=== PATIENT | male | born 1950 | race Caucasian/White ===

== ENCOUNTER 2018-11-10 12:43 | Inpatient (IN) | payer MEDICARE, MEDICAID ==
[~2018-11-10] VITALS: Ht 185.4 cm; Wt 92.6 kg
[2018-11-10] MEDS ORDERED: SODIUM CHLORIDE FLUSH 10ML SYR IVF ONE (13:00)
--- NOTE | 2018-11-10 13:09 | NUR ---
PT PLACED ON MONITOR, BED LIGHT GIVEN.
[2018-11-10 13:21] LABS: BASOPHILS # (AUTO) 0.03 x10^3/uL (0-0.1); BASOPHILS % (AUTO) 0 % (0-1); EOSINOPHILS # (AUTO) 0.05 x10^3/uL (0-0.4); EOSINOPHILS % (AUTO) 1 % (1-7); LYMPHOCYTES % (AUTO) 18 % (22-44); MD NO; MEAN CORPUSCULAR HEMOGLOBIN 30.1 pg (27.5-34.5); MEAN CORPUSCULAR HGB CONC 32.9 g/dL (33.2-36.2); MEAN CORPUSCULAR VOLUME 91.7 fL (81-97); MEAN PLATELET VOLUME 7.4 fL (7.4-10.4); MONOCYTES # (AUTO) 1.39 x10^3/uL (0.2-0.8); MONOCYTES % (AUTO) 17 % (2-9); NEUTROPHILS # (AUTO) 5.34 x10^3/uL (1.8-6.8); NEUTROPHILS % (AUTO) 64 % (42-75); PLATELET COUNT 218 x10^3/uL (130-400); RED BLOOD COUNT 5.05 x10^6/uL (4.38-5.82)
--- NOTE | 2018-11-10 13:25 | NUR ---
PT SLEEPING WAKES, STATES FEELS MUCH BETTER, JUST SLIGHT CRAMPING, PO CHALLENGE GIVEN
[2018-11-10 13:28] LABS: INTERNATIONAL NORMALIZED RATIO 1.11 (0.93-1.1); PROTHROMBIN TIME 11.7 Seconds (9.6-11.5)
[2018-11-10 13:31] LABS: ALBUMIN 3.5 g/dL (3.4-5.0); ANION GAP 8 mmol/L (5-15); CALCIUM 8.7 mg/dL (8.5-10.1); CHLORIDE 101 mmol/L (98-107)
--- NOTE | 2018-11-10 13:33 | NUR ---
NOTIFIED MD OF PT'S CONTINUED HICCUPS AND PAIN. PT STATES THE EMS MEDS ARE STILL WORKING THOUGH. MD WAITING RESULTS BEFORE FURTHER MEDICATIONS
[2018-11-10 13:35] LABS: ALANINE AMINOTRANSFERASE 43 U/L (12-78); ALKALINE PHOSPHATASE 55 U/L (45-117); CREATININE 0.62 mg/dL (0.7-1.3); TOTAL PROTEIN 9.1 g/dL (6.4-8.2)
--- NOTE | 2018-11-10 14:29 | NUR ---
WAITING CT RESULTS UP TO BATHROOM
--- NOTE | 2018-11-10 15:57 | NUR ---
PT JUST VOMITED APPROXIMATELY 50CC DARK COFFE GROUND EMESIS. PTS FRIEND STATES HE HAS NOT EATEN FOR MONTHS, JUST DRINKS MILK. MD TO BE AWARE OF VOMITING
[2018-11-10] MEDS ORDERED: OMNIPAQUE 350 MG/ML, 100ML BOTTLE ONE (16:24)
--- NOTE | 2018-11-10 16:34 | NUR ---
CRISTELA RN: PATIENT UPDATED WITH THE PLAN OF CARE - AWAITING CT RESULTS
--- NOTE | 2018-11-10 17:01 | NUR ---
PATIENT FRIEND ELAINE LEAVING NUMBER IS [phone]
[2018-11-10] MEDS ORDERED: PANTOPRAZOLE 80 MG in SODIUM CHLORIDE 0.9% 50 ML IVPB ONE (17:46)
[2018-11-10] MEDS ORDERED: ONDANSETRON 2MG/ML, 2ML ONE (17:49)
[2018-11-10] MEDS ORDERED: PANTOPRAZOLE 40 MG IV ONE (17:50)
[2018-11-10] MEDS ORDERED: OCTREOTIDE 500 MCG in SODIUM CHLORIDE 0.9% 249 ML IV PRN (17:54)
[2018-11-10] MEDS ORDERED: ONDANSETRON 2MG/ML, 2ML IVPush ONE (18:00)
[2018-11-10] MEDS ORDERED: OCTREOTIDE 100MCG/ML, 1ML (0.1MG/ML) IV ONE (18:00)
[2018-11-10] MEDS ORDERED: OCTREOTIDE 100MCG/ML, 1ML (0.1MG/ML) ONE (18:21)
[2018-11-10] MEDS ORDERED: SODIUM CHLORIDE 0.9% 1,000 ML IV ONE (18:27)
[2018-11-10] MEDS ORDERED: SODIUM CHLORIDE FLUSH 10ML SYR IVF PRN (18:30)
--- NOTE | 2018-11-10 18:50 | NUR ---
TO SEE PT. PT CONTINUES TO INTERMITTENTLY VOMIT. WAITING ADMIT
[2018-11-10] MEDS ORDERED: ONDANSETRON 2MG/ML, 2ML IVPush PRN (19:00)
[2018-11-10] MEDS ORDERED: BISACODYL 10 MG SUPP PR PRN (19:00)
[2018-11-10] MEDS ORDERED: hydrALAzine 20 MG/ML, 1ML IVPush PRN (19:00)
[2018-11-10] MEDS ORDERED: NICOTINE 14MG/24 HR PATCH.TD24 TD ONE (19:30)
[2018-11-10] MEDS ORDERED: OCTREOTIDE 500 MCG in SODIUM CHLORIDE 0.9% 249 ML IV SCH (19:30)
[2018-11-10 21:04] VITALS: BP 124/78
[2018-11-10] MEDS: LIDODERM 5% PATCH TD PRN (21:28)
[2018-11-10] MEDS: LORazepam 2 MG/ML, 1ML IVPush PRN (21:29)
[2018-11-11 01:35] VITALS: BP 104/60
[2018-11-11] MEDS ORDERED: OCTREOTIDE 500 MCG in SODIUM CHLORIDE 0.9% 249 ML IV SCH (04:30)
[2018-11-11 06:11] LABS: ANION GAP 6 mmol/L (5-15); CALCIUM 8.3 mg/dL (8.5-10.1); CHLORIDE 102 mmol/L (98-107); CREATININE 0.73 mg/dL (0.7-1.3)
[2018-11-11 06:17] LABS: MEAN CORPUSCULAR HEMOGLOBIN 30.6 pg (27.5-34.5); MEAN CORPUSCULAR HGB CONC 32.9 g/dL (33.2-36.2); MEAN CORPUSCULAR VOLUME 93.2 fL (81-97); MEAN PLATELET VOLUME 7.9 fL (7.4-10.4); PLATELET COUNT 210 x10^3/uL (130-400); RED BLOOD COUNT 4.63 x10^6/uL (4.38-5.82); RED CELL DISTRIBUTION WIDTH 15.2 % (9.4-14.8)
[2018-11-11 06:55] LABS: BASOPHILS # (AUTO) 0.02 x10^3/uL (0-0.1); BASOPHILS % (AUTO) 0 % (0-1); EOSINOPHILS # (AUTO) 0.07 x10^3/uL (0-0.4); EOSINOPHILS % (AUTO) 1 % (1-7); LYMPHOCYTES # (AUTO) 1.67 x10^3/uL (1-3.4); LYMPHOCYTES % (AUTO) 23 % (22-44); MD SCAN; MONOCYTES # (AUTO) 1.48 x10^3/uL (0.2-0.8); MONOCYTES % (AUTO) 20 % (2-9); NEUTROPHILS # (AUTO) 4.19 x10^3/uL (1.8-6.8); NEUTROPHILS % (AUTO) 56 % (42-75)
[2018-11-11 07:30] VITALS: BP 108/68
[2018-11-11] MEDS ORDERED: SIMETHICONE DROPS 40 MG/0.6 ML BOTTLE ONE (08:21)
[2018-11-11] MEDS ORDERED: FENTANYL PF 100 MCG/2ML ONE (08:22)
[2018-11-11] MEDS ORDERED: MIDAZOLAM 1 MG/ML, 5ML ONE (08:23)
[2018-11-11] MEDS ORDERED: PANTOPRAZOLE 40 MG IV IVPush SCH (09:00)
[2018-11-11 13:48] VITALS: BP 111/72
[2018-11-11] MEDS ORDERED: ACETAMINOPHEN 325 MG TABLET PO PRN (14:30)
[2018-11-11] MEDS: SODIUM CHLORIDE 0.9% 1,000 ML IV SCH (17:54)
[2018-11-11 19:43] VITALS: BP 117/70
[2018-11-11] MEDS: OMEPRAZOLE 20 MG CAPSULE.DR PO SCH (20:43)
[2018-11-11] MEDS: LORazepam 2 MG/ML, 1ML IVPush PRN (20:45)
[2018-11-12 01:46] VITALS: BP 126/67
[2018-11-12] MEDS: SODIUM CHLORIDE 0.9% 1,000 ML IV SCH ×2 (04:20→15:16)
[2018-11-12 06:47] LABS: ALANINE AMINOTRANSFERASE 38 U/L (12-78); ANION GAP 5 mmol/L (5-15); CALCIUM 8.3 mg/dL (8.5-10.1); CHLORIDE 104 mmol/L (98-107); CREATININE 0.68 mg/dL (0.7-1.3)
[2018-11-12 06:49] LABS: ALKALINE PHOSPHATASE 47 U/L (45-117); TOTAL PROTEIN 7.5 g/dL (6.4-8.2)
[2018-11-12 08:12] VITALS: BP 105/65
[2018-11-12] MEDS: OMEPRAZOLE 20 MG CAPSULE.DR PO SCH ×2 (09:16→21:05)
[2018-11-12] MEDS ORDERED: SENNA/DOCUSATE TABLET PO PRN (12:00)
[2018-11-12] MEDS ORDERED: LACTULOSE 20 GM/30 ML UDC PO PRN (12:00)
[2018-11-12] MEDS: DOCUSATE 100 MG CAPSULE PO PRN (12:11)
[2018-11-12] MEDS ORDERED: METOCLOPRAMIDE 5 MG/ML, 2ML IVPush PRN (15:00)
[2018-11-12 15:59] VITALS: BP 117/71
[2018-11-12 19:57] VITALS: BP 132/72
[2018-11-12] MEDS: LIDODERM 5% PATCH TD PRN (21:11)
[2018-11-12] MEDS: LORazepam 2 MG/ML, 1ML IVPush PRN (21:11)
[2018-11-13 02:20] VITALS: BP 111/65
[2018-11-13] MEDS: SODIUM CHLORIDE 0.9% 1,000 ML IV SCH ×2 (02:38→11:29)
[2018-11-13 07:43] VITALS: BP 110/66
[2018-11-13] MEDS: OMEPRAZOLE 20 MG CAPSULE.DR PO SCH (09:28)
[2018-11-13] MEDS: DOCUSATE 100 MG CAPSULE PO PRN (10:08)
[2018-11-13 11:39] VITALS: BP 127/68
[2018-11-13] MEDS ORDERED: OMEP-110 PO (13:11)
[2018-11-13] MEDS ORDERED: METO10TA82 PO (14:14)
[2018-11-13] MEDS ORDERED: LORA-446 PO (14:16)
[2018-11-13 14:32] VITALS: BP 122/68
== END 2018-11-13 14:35 | disposition home or self-care (01) | DRG 380 ==
LOC: ED 13:18 → EDIP 18:27 → 4EST 19:36 → DCLOUNGE 11-13 14:10
PROVIDERS: ADMIT Internal Medicine; ATTEND Internal Medicine
PROC: 0DJ08ZZ Inspection of Upper Intestinal Tract, Via Natural or Artificial Opening Endoscopic (ICD-10-PCS; principal; 2018-11-11 08:30)
DX: K22.11 Ulcer of esophagus with bleeding (principal); K85.90 Acute pancreatitis without necrosis or infection, unspecified; K55.069 Acute infarction of intestine, part and extent unspecified; F10.239 Alcohol dependence with withdrawal, unspecified; K76.6 Portal hypertension; K70.30 Alcoholic cirrhosis of liver without ascites; Z71.41 Alcohol abuse counseling and surveillance of alcoholic; F17.210 Nicotine dependence, cigarettes, uncomplicated; F12.90 Cannabis use, unspecified, uncomplicated; E86.9 Volume depletion, unspecified; I70.1 Atherosclerosis of renal artery; K21.0 Gastro-esophageal reflux disease with esophagitis; K44.9 Diaphragmatic hernia without obstruction or gangrene; Z82.0 Family history of epilepsy and other diseases of the nervous system; K29.81 Duodenitis with bleeding; K29.80 Duodenitis without bleeding
CPT/HCPCS: 36415; 74175; 74177; 80048; 80053; 80074; 83605; 83690; 85014; 85018; 85025; 85610; 85730; 86850; 86900; 87521; 96374; 96375; 99152; 99153; 99285; G0378; J2250; J2354; J2405; J3010; Q9967; C9113; J2060; J7030; J7050

== ENCOUNTER 2019-01-31 10:58 | Emergency (ER) | payer MEDICARE, MEDICAID ==
[~2019-01-31] VITALS: Ht 182.9 cm; Wt 90.0 kg
[~2019-01-31 10:58] MED LIST: LORA-446 PO; METO10TA82 PO; OMEP-110 PO
[2019-01-31 11:01] VITALS: BP 154/81
--- NOTE | 2019-01-31 11:04 | NUR ---
Patient brought in by EMS after being called by patient for lower back pain. Patient was reportedly seen by his primary care provider 01/30/19 and prescribed baclofen but states pain is not controlled. IV started by EMS prior to arrival, patient was ambulatory on scene, fentanyl 100mcg administered prior to arrival. Patient arrives alert and oriented, answering questions appropriately, he is able to stand and pivot into ER gurney with one person assist. Patient states that he does not feel relief after fentanyl, states "I didn't even feel it (fentanyl)" when asked if his pain had improved. Patient laying in gurney, call quezada within reach, continuous blood pressure and SPO2 monitoring in place; call quezada within reach. Report given to patient's primary RN Tunde Gomez
[2019-01-31] MEDS ORDERED: HYDROcodone/APAP 10/325 MG TABLET PO ONE (11:30)
[2019-01-31] MEDS ORDERED: HYDROcodone/APAP 10/325 MG TABLET ONE (11:35)
[2019-01-31 11:41] LABS: BASOPHILS # (AUTO) 0.03 x10^3/uL (0-0.1); BASOPHILS % (AUTO) 1 % (0-1); EOSINOPHILS # (AUTO) 0.12 x10^3/uL (0-0.4); EOSINOPHILS % (AUTO) 2 % (1-7); LYMPHOCYTES # (AUTO) 1.87 x10^3/uL (1-3.4); LYMPHOCYTES % (AUTO) 33 % (22-44); MD NO; MEAN CORPUSCULAR HGB CONC 33.1 g/dL (33.2-36.2); MEAN CORPUSCULAR VOLUME 90.6 fL (81-97); MEAN PLATELET VOLUME 7.6 fL (7.4-10.4); MONOCYTES # (AUTO) 0.53 x10^3/uL (0.2-0.8); MONOCYTES % (AUTO) 9 % (2-9); NEUTROPHILS # (AUTO) 3.19 x10^3/uL (1.8-6.8); NEUTROPHILS % (AUTO) 56 % (42-75); PLATELET COUNT 184 x10^3/uL (130-400); RED BLOOD COUNT 4.76 x10^6/uL (4.38-5.82); RED CELL DISTRIBUTION WIDTH 16.5 % (9.4-14.8)
[2019-01-31 11:54] LABS: ALANINE AMINOTRANSFERASE 34 U/L (12-78); ALBUMIN 3.6 g/dL (3.4-5.0); ANION GAP 5 mmol/L (5-15); CHLORIDE 107 mmol/L (98-107); CREATININE 0.76 mg/dL (0.7-1.3)
[2019-01-31 11:56] LABS: ALKALINE PHOSPHATASE 74 U/L (45-117); TOTAL PROTEIN 8.5 g/dL (6.4-8.2)
--- NOTE | 2019-01-31 12:13 | NUR ---
PT REQUESTING PAIN MEDS AT THIS TIME. PROVIDER MADE AWARE. NO NEW ORDERS.
== END 2019-01-31 13:52 | disposition home or self-care (01) ==
LOC: ED 11:04
DX: S39.012A Strain of muscle, fascia and tendon of lower back, initial encounter (principal); M54.16 Radiculopathy, lumbar region; F17.210 Nicotine dependence, cigarettes, uncomplicated; X58.XXXA Exposure to other specified factors, initial encounter; Y93.89 Activity, other specified; Y92.89 Other specified places as the place of occurrence of the external cause; Y99.8 Other external cause status
CPT/HCPCS: 36415; 72110; 80053; 85025; 99284

== ENCOUNTER → 2019-03-04 | Outpatient (CLI) | payer MEDICARE, MEDICAID ==
[~2019-03-04] MED LIST changes: +FENTANYL PF 100 MCG/2ML ONE; +MIDAZOLAM 1 MG/ML, 5ML ONE
== END | disposition home or self-care (01) ==
LOC: RAD 12:31
PROVIDERS: ATTEND Licensed Practical Nurse
DX: Z12.2 Encounter for screening for malignant neoplasm of respiratory organs (principal); S22.080A Wedge compression fracture of T11-T12 vertebra, initial encounter for closed fracture; M48.061 Spinal stenosis, lumbar region without neurogenic claudication; M43.07 Spondylolysis, lumbosacral region; M51.36 Other intervertebral disc degeneration, lumbar region; R91.8 Other nonspecific abnormal finding of lung field; F17.200 Nicotine dependence, unspecified, uncomplicated; X58.XXXA Exposure to other specified factors, initial encounter; Y93.89 Activity, other specified; Y92.89 Other specified places as the place of occurrence of the external cause; Y99.8 Other external cause status
CPT/HCPCS: 72110; 72148; 99156; 99157; G0297; J2250; J3010

== ENCOUNTER 2019-05-22 11:10 | Outpatient (CLI) | payer MEDICARE, MEDICAID | END 2019-05-22 23:59 | disposition home or self-care (01) | LOC: RAD 11:10 | PROVIDERS: ATTEND Registered Nurse | DX: M48.55XA Collapsed vertebra, not elsewhere classified, thoracolumbar region, initial encounter for fracture (principal); M51.16 Intervertebral disc disorders with radiculopathy, lumbar region; M47.817 Spondylosis without myelopathy or radiculopathy, lumbosacral region; M43.17 Spondylolisthesis, lumbosacral region; M48.061 Spinal stenosis, lumbar region without neurogenic claudication | CPT/HCPCS: 72110 ==

== ENCOUNTER 2020-01-04 10:32 | Inpatient (IN) | payer MEDICARE, MEDICAID ==
[~2020-01-04] VITALS: Ht 185.4 cm; Wt 72.6 kg
[~2020-01-04 10:32] MED LIST changes: +BACL-19 PO; -FENTANYL PF 100 MCG/2ML ONE; +HYDR-3240 PO; -MIDAZOLAM 1 MG/ML, 5ML ONE; +OMEP40CA42 PO
[2020-01-04] MEDS ORDERED: MORPHINE SULFATE 4 MG/ML, 1ML ONE ×2 (11:13→12:18)
[2020-01-04] MEDS: MORPHINE SULFATE 4 MG/ML, 1ML IVPush PRN ×2 (11:20→12:20)
[2020-01-04] MEDS ORDERED: ONDANSETRON 2MG/ML, 2ML IVPush ONE (11:30)
[2020-01-04] MEDS ORDERED: ONDANSETRON 2MG/ML, 2ML ONE (11:31)
[2020-01-04 11:32] LABS: BASOPHILS # (AUTO) 0.03 x10^3/uL (0-0.1); BASOPHILS % (AUTO) 1 % (0-1); EOSINOPHILS # (AUTO) 0.07 x10^3/uL (0-0.4); EOSINOPHILS % (AUTO) 1 % (1-7); LYMPHOCYTES # (AUTO) 1.33 x10^3/uL (1-3.4); LYMPHOCYTES % (AUTO) 25 % (22-44); MD NO; MEAN CORPUSCULAR HEMOGLOBIN 36.5 pg (27.5-34.5); MEAN CORPUSCULAR HGB CONC 33.7 g/dL (33.2-36.2); MEAN CORPUSCULAR VOLUME 108.4 fL (81-97); MEAN PLATELET VOLUME 7.4 fL (7.4-10.4); MONOCYTES # (AUTO) 0.57 x10^3/uL (0.2-0.8); MONOCYTES % (AUTO) 11 % (2-9); NEUTROPHILS # (AUTO) 3.41 x10^3/uL (1.8-6.8); NEUTROPHILS % (AUTO) 63 % (42-75); PLATELET COUNT 182 x10^3/uL (130-400); RED BLOOD COUNT 3.79 x10^6/uL (4.38-5.82); RED CELL DISTRIBUTION WIDTH 15.1 % (9.4-14.8)
[2020-01-04 11:44] LABS: ALANINE AMINOTRANSFERASE 22 U/L (12-78); ALBUMIN 3.2 g/dL (3.4-5.0); ANION GAP 7 mmol/L (5-15); CALCIUM 8.6 mg/dL (8.5-10.1); CHLORIDE 101 mmol/L (98-107); CREATININE 0.67 mg/dL (0.7-1.3)
[2020-01-04 11:45] LABS: INTERNATIONAL NORMALIZED RATIO 1.04 (0.93-1.1)
[2020-01-04 11:46] LABS: ALKALINE PHOSPHATASE 83 U/L (45-117); BILIRUBIN,TOTAL 2.9 mg/dL (0.2-1.0); TOTAL PROTEIN 7.9 g/dL (6.4-8.2)
--- NOTE | 2020-01-04 12:10 | NUR ---
PT IN XRAY. ASSUMED CARE FROM TERRI DREW
[2020-01-04] MEDS ORDERED: HYDROcodone/APAP 5/325 TABLET PO ONE (13:00)
[2020-01-04] MEDS ORDERED: HYDROcodone/APAP 5/325 TABLET PO PRN (13:30)
[2020-01-04] MEDS ORDERED: ENOXAPARIN 40 MG/0.4 ML SQ SCH ×2 (13:30→15:30)
[2020-01-04] MEDS: NICOTINE 14MG/24 HR PATCH.TD24 TD SCH (13:30)
[2020-01-04] MEDS ORDERED: ACETAMINOPHEN 325 MG TABLET PO PRN (13:30)
[2020-01-04] MEDS ORDERED: HYDROcodone/APAP 5/325 TABLET ONE (13:30)
[2020-01-04] MEDS: SODIUM CHLORIDE 0.9% 1,000 ML IV SCH (13:33)
[2020-01-04 14:47] VITALS: BP 115/78
[2020-01-04] MEDS: ENOXAPARIN 30 MG/0.3 ML SQ SCH (16:42)
[2020-01-04] MEDS: morphine SULFATE 10 MG/ML, 1ML IVPush PRN ×2 (17:18→20:36)
[2020-01-04 19:55] VITALS: BP 99/62
[2020-01-05 01:53] VITALS: BP 105/70
[2020-01-05] MEDS: SODIUM CHLORIDE 0.9% 1,000 ML IV SCH ×2 (02:32→15:37)
[2020-01-05] MEDS: morphine SULFATE 10 MG/ML, 1ML IVPush PRN ×3 (02:37→20:22)
[2020-01-05 06:25] LABS: ANION GAP 6 mmol/L (5-15); CHLORIDE 104 mmol/L (98-107)
[2020-01-05 06:26] LABS: CREATININE 0.57 mg/dL (0.7-1.3)
[2020-01-05 06:35] LABS: BASOPHILS # (AUTO) 0.03 x10^3/uL (0-0.1); BASOPHILS % (AUTO) 1 % (0-1); EOSINOPHILS % (AUTO) 2 % (1-7); LYMPHOCYTES # (AUTO) 1.54 x10^3/uL (1-3.4); LYMPHOCYTES % (AUTO) 30 % (22-44); MD NO; MEAN CORPUSCULAR HEMOGLOBIN 36.5 pg (27.5-34.5); MEAN CORPUSCULAR HGB CONC 33.5 g/dL (33.2-36.2); MEAN PLATELET VOLUME 8.1 fL (7.4-10.4); MONOCYTES # (AUTO) 0.71 x10^3/uL (0.2-0.8); MONOCYTES % (AUTO) 14 % (2-9); NEUTROPHILS # (AUTO) 2.79 x10^3/uL (1.8-6.8); NEUTROPHILS % (AUTO) 54 % (42-75); PLATELET COUNT 140 x10^3/uL (130-400); RED BLOOD COUNT 3.27 x10^6/uL (4.38-5.82); RED CELL DISTRIBUTION WIDTH 15.4 % (9.4-14.8)
[2020-01-05 07:16] VITALS: BP 100/65
[2020-01-05] MEDS: ACETAMINOPHEN 325 MG TABLET PO SCH ×2 (08:01→15:37)
[2020-01-05] MEDS: SENNA/DOCUSATE TABLET PO SCH (08:01)
[2020-01-05] MEDS: OMEPRAZOLE 20 MG CAPSULE.DR PO SCH (08:01)
[2020-01-05] MEDS: GABAPENTIN 100 MG CAPSULE PO SCH ×3 (08:02→20:23)
[2020-01-05] MEDS: OXYcodone IR 5MG TABLET PO SCH ×3 (12:00→20:23)
[2020-01-05] MEDS: NICOTINE 14MG/24 HR PATCH.TD24 TD SCH (12:00)
[2020-01-05 13:57] VITALS: BP 117/78
[2020-01-05] MEDS: ENOXAPARIN 30 MG/0.3 ML SQ SCH (15:37)
[2020-01-05] MEDS ORDERED: POTASSIUM CHLORIDE 20 MEQ TAB.ER.PRT PO ONE (16:30)
[2020-01-05] MEDS ORDERED: POTASSIUM CHLORIDE 40 MEQ in SODIUM CHLORIDE 0.9% 500 ML IV ONE (16:30)
[2020-01-05 20:41] VITALS: BP 126/77
[2020-01-06] MEDS: ACETAMINOPHEN 325 MG TABLET PO SCH ×3 (00:34→17:02)
[2020-01-06] MEDS: morphine SULFATE 10 MG/ML, 1ML IVPush PRN ×2 (00:35→14:28)
[2020-01-06] MEDS: OXYcodone IR 5MG TABLET PO SCH ×6 (00:35→19:51)
[2020-01-06 03:36] VITALS: BP 98/60
[2020-01-06 06:00] LABS: ANION GAP 4 mmol/L (5-15); CALCIUM 7.5 mg/dL (8.5-10.1); CHLORIDE 110 mmol/L (98-107)
[2020-01-06 06:01] LABS: CREATININE 0.47 mg/dL (0.7-1.3)
[2020-01-06] MEDS: SODIUM CHLORIDE 0.9% 1,000 ML IV SCH (06:02)
[2020-01-06] MEDS ORDERED: POTASSIUM CHLORIDE 20 MEQ TAB.ER.PRT PO ONE ×2 (07:30→10:30)
[2020-01-06 08:11] VITALS: BP 119/72
[2020-01-06] MEDS: OMEPRAZOLE 20 MG CAPSULE.DR PO SCH (09:03)
[2020-01-06] MEDS: GABAPENTIN 100 MG CAPSULE PO SCH (09:04)
[2020-01-06] MEDS: SENNA/DOCUSATE TABLET PO SCH (09:05)
[2020-01-06] MEDS: NICOTINE 14MG/24 HR PATCH.TD24 TD SCH (14:11)
[2020-01-06 14:32] VITALS: BP 137/86
[2020-01-06] MEDS: GABAPENTIN 400 MG CAPSULE PO SCH ×2 (17:01→19:51)
[2020-01-06] MEDS: ENOXAPARIN 30 MG/0.3 ML SQ SCH (17:02)
[2020-01-06 20:28] VITALS: BP 138/83
[2020-01-07 00:04] VITALS: BP 145/89
[2020-01-07] MEDS: OXYcodone IR 5MG TABLET PO SCH ×6 (00:08→20:30)
[2020-01-07] MEDS: ACETAMINOPHEN 325 MG TABLET PO SCH ×3 (00:08→16:30)
[2020-01-07 05:30] LABS: BASOPHILS # (AUTO) 0.03 x10^3/uL (0-0.1); BASOPHILS % (AUTO) 1 % (0-1); EOSINOPHILS # (AUTO) 0.12 x10^3/uL (0-0.4); EOSINOPHILS % (AUTO) 3 % (1-7); LYMPHOCYTES # (AUTO) 1.37 x10^3/uL (1-3.4); LYMPHOCYTES % (AUTO) 30 % (22-44); MD NO; MEAN CORPUSCULAR HEMOGLOBIN 36.4 pg (27.5-34.5); MEAN CORPUSCULAR HGB CONC 33.2 g/dL (33.2-36.2); MEAN CORPUSCULAR VOLUME 109.7 fL (81-97); MEAN PLATELET VOLUME 7.8 fL (7.4-10.4); MONOCYTES # (AUTO) 0.67 x10^3/uL (0.2-0.8); MONOCYTES % (AUTO) 15 % (2-9); NEUTROPHILS % (AUTO) 52 % (42-75); PLATELET COUNT 132 x10^3/uL (130-400); RED BLOOD COUNT 3.34 x10^6/uL (4.38-5.82); RED CELL DISTRIBUTION WIDTH 15.9 % (9.4-14.8)
[2020-01-07 05:36] LABS: ANION GAP 4 mmol/L (5-15); CALCIUM 7.8 mg/dL (8.5-10.1); CHLORIDE 112 mmol/L (98-107); CREATININE 0.44 mg/dL (0.7-1.3)
[2020-01-07] MEDS: GABAPENTIN 400 MG CAPSULE PO SCH ×3 (08:41→20:30)
[2020-01-07] MEDS: OMEPRAZOLE 20 MG CAPSULE.DR PO SCH (08:41)
[2020-01-07] MEDS: SENNA/DOCUSATE TABLET PO SCH (08:45)
[2020-01-07] MEDS: POLYETHYLENE GLYCOL 17 GM PACKET PO SCH (08:45)
[2020-01-07 09:17] VITALS: BP 129/81
[2020-01-07] MEDS: morphine SULFATE 10 MG/ML, 1ML IVPush PRN (12:12)
[2020-01-07] MEDS ORDERED: MIDAZOLAM 1 MG/ML, 2ML ONE ×2 (13:00→17:21)
[2020-01-07] MEDS ORDERED: FENTANYL PF 250 MCG/5ML ONE ×2 (13:00→17:22)
[2020-01-07] MEDS: NICOTINE 14MG/24 HR PATCH.TD24 TD SCH (13:30)
[2020-01-07] MEDS ORDERED: TRANEXAMIC ACID 100 MG/ML, 10ML ONE ×2 (13:45)
[2020-01-07] MEDS ORDERED: BUPIVACAINE LIPOSOME/PF 10ML INFIL ONE (14:00)
[2020-01-07] MEDS ORDERED: DIAZEPAM 5 MG/ML, 2ML IVPush PRN (16:30)
[2020-01-07] MEDS: ENOXAPARIN 30 MG/0.3 ML SQ SCH (16:30)
[2020-01-07] MEDS ORDERED: OXYcodone 5 MG/5 ML ORAL.SOL UDC PO PRN (16:30)
[2020-01-07] MEDS ORDERED: KETOROLAC 30 MG/1 ML IV PRN (16:30)
[2020-01-07] MEDS ORDERED: FENTANYL PF 100 MCG/2ML IV PRN (16:30)
[2020-01-07] MEDS ORDERED: PROMETHAZINE 25 MG/ML, 1ML IV PRN (16:30)
[2020-01-07] MEDS ORDERED: ALBUTEROL SULFATE 2.5 MG/3 ML NPPB PRN (16:30)
[2020-01-07] MEDS ORDERED: MEPERIDINE/PF 25MG/0.5ML IVPush PRN (16:30)
[2020-01-07] MEDS ORDERED: ACETAMINOPHEN 325 MG TABLET PO PRN (16:30)
[2020-01-07] MEDS ORDERED: LABETALOL 5MG/ML, 20ML IV PRN (16:30)
[2020-01-07] MEDS ORDERED: hydrALAzine 20 MG/ML, 1ML IV PRN (16:30)
[2020-01-07] MEDS ORDERED: HYDROmorphone 2 MG/ML, 1ML IVPush PRN (16:30)
[2020-01-07] MEDS ORDERED: ROCURONIUM 10MG/ML,5ML ONE (17:26)
[2020-01-07] MEDS ORDERED: SUCCINYLCHOLINE 20 MG/ML, 10ML ONE (17:26)
[2020-01-07] MEDS ORDERED: NEOSTIGMINE 1 MG/ML, 10ML ONE (17:26)
[2020-01-07] MEDS ORDERED: GLYCOPYRROLATE 0.2MG/1ML, 5ML ONE (17:26)
[2020-01-07] MEDS ORDERED: ONDANSETRON 2MG/ML, 2ML ONE (17:26)
[2020-01-07] MEDS ORDERED: SUGAMMADEX 200 MG/2 ML IVPush ONE (17:26)
[2020-01-07] MEDS ORDERED: DEXAMETHASONE 4 MG/ML, 1ML ONE (17:26)
[2020-01-07] MEDS ORDERED: PROPOFOL 10 MG/ML, 20ML ONE (17:26)
[2020-01-07] MEDS ORDERED: CEFAZOLIN 1,000 MG ONE (17:26)
[2020-01-07] MEDS ORDERED: DIAZEPAM 5 MG/ML, 2ML ONE (17:40)
[2020-01-07] MEDS ORDERED: FENTANYL PF 100 MCG/2ML ONE (17:40)
[2020-01-07] MEDS ORDERED: OXYcodone 5 MG/5 ML ORAL.SOL UDC ONE (17:40)
[2020-01-07 20:15] VITALS: BP 99/67
[2020-01-08] MEDS: ACETAMINOPHEN 325 MG TABLET PO SCH ×3 (00:16→16:07)
[2020-01-08] MEDS: OXYcodone IR 5MG TABLET PO SCH ×6 (01:24→21:18)
[2020-01-08] MEDS: CEFAZOLIN PMX 2GM/50ML 50 ML IVPB SCH ×2 (01:26→08:48)
[2020-01-08 04:10] VITALS: BP 96/59
[2020-01-08 05:53] LABS: ANION GAP 6 mmol/L (5-15); CALCIUM 7.6 mg/dL (8.5-10.1); CHLORIDE 107 mmol/L (98-107)
[2020-01-08 05:54] LABS: CREATININE 0.52 mg/dL (0.7-1.3)
[2020-01-08 05:59] LABS: BASOPHILS # (AUTO) 0.01 x10^3/uL (0-0.1); BASOPHILS % (AUTO) 0 % (0-1); EOSINOPHILS # (AUTO) 0.04 x10^3/uL (0-0.4); EOSINOPHILS % (AUTO) 1 % (1-7); LYMPHOCYTES # (AUTO) 0.91 x10^3/uL (1-3.4); LYMPHOCYTES % (AUTO) 12 % (22-44); MD NO; MEAN CORPUSCULAR HEMOGLOBIN 36.4 pg (27.5-34.5); MEAN CORPUSCULAR HGB CONC 33.4 g/dL (33.2-36.2); MEAN CORPUSCULAR VOLUME 109.1 fL (81-97); MEAN PLATELET VOLUME 7.9 fL (7.4-10.4); MONOCYTES # (AUTO) 0.87 x10^3/uL (0.2-0.8); MONOCYTES % (AUTO) 12 % (2-9); NEUTROPHILS # (AUTO) 5.64 x10^3/uL (1.8-6.8); NEUTROPHILS % (AUTO) 76 % (42-75); PLATELET COUNT 137 x10^3/uL (130-400); RED BLOOD COUNT 2.94 x10^6/uL (4.38-5.82)
[2020-01-08] MEDS: OMEPRAZOLE 20 MG CAPSULE.DR PO SCH (06:17)
[2020-01-08 08:40] VITALS: BP 112/72
[2020-01-08] MEDS: GABAPENTIN 400 MG CAPSULE PO SCH ×3 (08:47→21:18)
[2020-01-08] MEDS: SENNA/DOCUSATE TABLET PO SCH (08:48)
[2020-01-08] MEDS: POLYETHYLENE GLYCOL 17 GM PACKET PO SCH (08:48)
[2020-01-08] MEDS: NICOTINE 14MG/24 HR PATCH.TD24 TD SCH (13:30)
[2020-01-08 13:55] VITALS: BP 108/72
[2020-01-08] MEDS ORDERED: OXYcodone 5 MG/5 ML ORAL.SOL UDC ONE (13:57)
[2020-01-08] MEDS: ENOXAPARIN 30 MG/0.3 ML SQ SCH (16:07)
[2020-01-08 19:31] VITALS: BP 108/67
[2020-01-09] MEDS: ACETAMINOPHEN 325 MG TABLET PO SCH ×3 (00:27→15:57)
[2020-01-09] MEDS: OXYcodone IR 5MG TABLET PO SCH ×6 (01:42→21:28)
[2020-01-09 02:28] VITALS: BP 111/69
[2020-01-09 05:41] LABS: MEAN CORPUSCULAR HEMOGLOBIN 36.9 pg (27.5-34.5); MEAN CORPUSCULAR HGB CONC 33.4 g/dL (33.2-36.2); MEAN CORPUSCULAR VOLUME 110.3 fL (81-97); RED BLOOD COUNT 2.82 x10^6/uL (4.38-5.82); RED CELL DISTRIBUTION WIDTH 16.4 % (9.4-14.8)
[2020-01-09 05:42] LABS: ANION GAP 6 mmol/L (5-15); CALCIUM 7.3 mg/dL (8.5-10.1); CHLORIDE 111 mmol/L (98-107); CREATININE 0.53 mg/dL (0.7-1.3)
[2020-01-09 06:19] LABS: MEAN PLATELET VOLUME 7.6 fL (7.4-10.4); PLATELET COUNT 135 x10^3/uL (130-400)
[2020-01-09 06:22] LABS: MD MORPH REVIEW ONLY
[2020-01-09 06:23] LABS: <PLATELET ESTIMATE> ADEQUATE; <PLT MORPHOLOGY> NORMAL PLT MORPH; BASOPHILS # (AUTO) 0.02 x10^3/uL (0-0.1); BASOPHILS % (AUTO) 0 % (0-1); EOSINOPHILS # (AUTO) 0.07 x10^3/uL (0-0.4); EOSINOPHILS % (AUTO) 1 % (1-7); LYMPHOCYTES # (AUTO) 1.61 x10^3/uL (1-3.4); LYMPHOCYTES % (AUTO) 31 % (22-44); MONOCYTES # (AUTO) 0.78 x10^3/uL (0.2-0.8); MONOCYTES % (AUTO) 15 % (2-9); NEUTROPHILS # (AUTO) 2.76 x10^3/uL (1.8-6.8); NEUTROPHILS % (AUTO) 53 % (42-75)
[2020-01-09] MEDS: OMEPRAZOLE 20 MG CAPSULE.DR PO SCH (06:39)
[2020-01-09] MEDS: GABAPENTIN 400 MG CAPSULE PO SCH ×3 (08:23→21:27)
[2020-01-09] MEDS: SENNA/DOCUSATE TABLET PO SCH (08:23)
[2020-01-09] MEDS: POLYETHYLENE GLYCOL 17 GM PACKET PO SCH (08:24)
[2020-01-09 08:50] VITALS: BP 113/72
[2020-01-09 12:14] VITALS: BP 121/71
[2020-01-09] MEDS: NICOTINE 14MG/24 HR PATCH.TD24 TD SCH (12:47)
[2020-01-09 15:52] LABS: ANION GAP 4 mmol/L (5-15); CHLORIDE 109 mmol/L (98-107); CREATININE 0.64 mg/dL (0.7-1.3)
[2020-01-09] MEDS: ENOXAPARIN 30 MG/0.3 ML SQ SCH (15:56)
[2020-01-09 19:20] VITALS: BP 124/72
[2020-01-10] MEDS: ACETAMINOPHEN 325 MG TABLET PO SCH ×3 (00:17→15:21)
[2020-01-10 00:28] VITALS: BP 107/69
[2020-01-10] MEDS: OXYcodone IR 5MG TABLET PO SCH ×6 (01:42→23:30)
[2020-01-10] MEDS: OMEPRAZOLE 20 MG CAPSULE.DR PO SCH (06:47)
[2020-01-10] MEDS: POLYETHYLENE GLYCOL 17 GM PACKET PO SCH (09:00)
[2020-01-10] MEDS: SENNA/DOCUSATE TABLET PO SCH (09:39)
[2020-01-10] MEDS: GABAPENTIN 400 MG CAPSULE PO SCH ×3 (09:39→21:23)
[2020-01-10] MEDS: NICOTINE 14MG/24 HR PATCH.TD24 TD SCH (13:30)
[2020-01-10 14:00] VITALS: BP 120/79
[2020-01-10] MEDS: ENOXAPARIN 30 MG/0.3 ML SQ SCH (15:20)
[2020-01-10] MEDS: OxyconTIN ER 10 MG TAB.ER PO SCH (18:40)
[2020-01-10 19:50] VITALS: BP 130/81
[2020-01-11] MEDS: ACETAMINOPHEN 325 MG TABLET PO SCH ×3 (00:40→15:58)
[2020-01-11 01:44] VITALS: BP 126/77
[2020-01-11] MEDS: OXYcodone IR 5MG TABLET PO SCH ×5 (03:24→20:52)
[2020-01-11] MEDS: OxyconTIN ER 10 MG TAB.ER PO SCH ×2 (06:00→18:41)
[2020-01-11 06:48] VITALS: BP 134/85
[2020-01-11] MEDS: POLYETHYLENE GLYCOL 17 GM PACKET PO SCH (08:16)
[2020-01-11] MEDS: OMEPRAZOLE 20 MG CAPSULE.DR PO SCH (08:16)
[2020-01-11] MEDS: SENNA/DOCUSATE TABLET PO SCH (08:17)
[2020-01-11] MEDS: GABAPENTIN 400 MG CAPSULE PO SCH ×3 (08:17→20:51)
[2020-01-11 13:16] VITALS: BP 137/86
[2020-01-11] MEDS: NICOTINE 14MG/24 HR PATCH.TD24 TD SCH (13:30)
[2020-01-11] MEDS: ENOXAPARIN 30 MG/0.3 ML SQ SCH (15:57)
[2020-01-11 20:54] VITALS: BP 136/84
[2020-01-12 00:59] VITALS: BP 130/78
[2020-01-12] MEDS: ACETAMINOPHEN 325 MG TABLET PO SCH ×3 (01:00→16:16)
[2020-01-12] MEDS: OXYcodone IR 5MG TABLET PO SCH ×6 (01:01→22:09)
[2020-01-12 05:11] LABS: MEAN CORPUSCULAR HEMOGLOBIN 36.8 pg (27.5-34.5); MEAN CORPUSCULAR HGB CONC 33.4 g/dL (33.2-36.2); MEAN PLATELET VOLUME 7.4 fL (7.4-10.4); PLATELET COUNT 165 x10^3/uL (130-400); RED BLOOD COUNT 2.94 x10^6/uL (4.38-5.82); RED CELL DISTRIBUTION WIDTH 15.9 % (9.4-14.8)
[2020-01-12 05:18] LABS: ALANINE AMINOTRANSFERASE 11 U/L (12-78); ALBUMIN 2.3 g/dL (3.4-5.0); ANION GAP 6 mmol/L (5-15); CALCIUM 7.7 mg/dL (8.5-10.1); CHLORIDE 113 mmol/L (98-107); CREATININE 0.51 mg/dL (0.7-1.3)
[2020-01-12 05:21] LABS: ALKALINE PHOSPHATASE 66 U/L (45-117); BILIRUBIN,TOTAL 1.5 mg/dL (0.2-1.0); TOTAL PROTEIN 6.3 g/dL (6.4-8.2)
[2020-01-12 06:00] LABS: BASOPHILS # (AUTO) 0.04 x10^3/uL (0-0.1); BASOPHILS % (AUTO) 1 % (0-1); EOSINOPHILS # (AUTO) 0.14 x10^3/uL (0-0.4); EOSINOPHILS % (AUTO) 3 % (1-7); LYMPHOCYTES # (AUTO) 1.59 x10^3/uL (1-3.4); LYMPHOCYTES % (AUTO) 36 % (22-44); MD SCAN; MONOCYTES # (AUTO) 0.52 x10^3/uL (0.2-0.8); MONOCYTES % (AUTO) 12 % (2-9); NEUTROPHILS # (AUTO) 2.15 x10^3/uL (1.8-6.8); NEUTROPHILS % (AUTO) 49 % (42-75)
[2020-01-12] MEDS: OxyconTIN ER 10 MG TAB.ER PO SCH ×2 (06:35→18:39)
[2020-01-12] MEDS: OMEPRAZOLE 20 MG CAPSULE.DR PO SCH (06:36)
[2020-01-12 08:10] VITALS: BP 143/89
[2020-01-12] MEDS ORDERED: POTASSIUM CHLORIDE 20 MEQ TAB.ER.PRT PO ONE (08:30)
[2020-01-12] MEDS ORDERED: MAGNESIUM SULFATE PMX 2GM/50ML 50 ML IV ONE (08:30)
[2020-01-12] MEDS: POLYETHYLENE GLYCOL 17 GM PACKET PO SCH (08:53)
[2020-01-12] MEDS: GABAPENTIN 400 MG CAPSULE PO SCH ×3 (08:53→20:02)
[2020-01-12] MEDS: SENNA/DOCUSATE TABLET PO SCH (08:53)
[2020-01-12] MEDS: MAGNESIUM CHLORIDE 64 MG TABLET.DR PO SCH ×2 (10:16→20:02)
[2020-01-12] MEDS: NICOTINE 14MG/24 HR PATCH.TD24 TD SCH (13:24)
[2020-01-12 15:30] VITALS: BP 116/78
[2020-01-12] MEDS: ENOXAPARIN 30 MG/0.3 ML SQ SCH (16:16)
[2020-01-12 18:58] VITALS: BP 106/69
[2020-01-13] MEDS: OXYcodone IR 5MG TABLET PO SCH ×4 (02:16→16:25)
[2020-01-13] MEDS: ACETAMINOPHEN 325 MG TABLET PO SCH ×2 (02:16→10:00)
[2020-01-13 02:23] VITALS: BP 110/65
[2020-01-13 06:05] VITALS: BP 112/71
[2020-01-13] MEDS: OMEPRAZOLE 20 MG CAPSULE.DR PO SCH (06:07)
[2020-01-13] MEDS: MAGNESIUM CHLORIDE 64 MG TABLET.DR PO SCH (08:53)
[2020-01-13] MEDS: POLYETHYLENE GLYCOL 17 GM PACKET PO SCH (08:53)
[2020-01-13] MEDS: SENNA/DOCUSATE TABLET PO SCH (08:53)
[2020-01-13] MEDS: GABAPENTIN 400 MG CAPSULE PO SCH ×2 (08:53→16:26)
[2020-01-13] MEDS: OxyconTIN ER 10 MG TAB.ER PO SCH (08:53)
[2020-01-13 12:18] VITALS: BP 145/77
[2020-01-13] MEDS ORDERED: SENN-193 PO (12:23)
[2020-01-13] MEDS ORDERED: GABA-827 PO (12:23)
[2020-01-13] MEDS ORDERED: BACL-19 PO (12:23)
[2020-01-13] MEDS ORDERED: POLY17PO5 PO (12:23)
[2020-01-13] MEDS ORDERED: MAGN70TA2 PO (12:23)
[2020-01-13] MEDS ORDERED: ENOX30DI3 SQ (12:23)
[2020-01-13] MEDS ORDERED: BACLOFEN 10 MG TABLET PO SCH (12:30)
[2020-01-13] MEDS: NICOTINE 14MG/24 HR PATCH.TD24 TD SCH (13:30)
[2020-01-13] MEDS: ENOXAPARIN 30 MG/0.3 ML SQ SCH (16:26)
[2020-01-13 17:41] VITALS: BP 150/86
== END 2020-01-13 18:08 | DRG 483 ==
LOC: ED 13:25 → EDIP 14:10 → UNDOADMIN 14:10 → EDIP 14:46 → 3N 14:46 → OBSVTOIN 01-05 00:13 → INTOOBSV 01-05 00:13 → 3N 01-05 00:13 → 4NE 01-07 18:33
PROVIDERS: ADMIT Emergency Medicine; ATTEND Internal Medicine
PROC: 3E0T3BZ Introduction of Anesthetic Agent into Peripheral Nerves and Plexi, Percutaneous Approach (ICD-10-PCS; 2020-01-07)
PROC: 0RRJ00Z Replacement of Right Shoulder Joint with Reverse Ball and Socket Synthetic Substitute, Open Approach (ICD-10-PCS; principal; 2020-01-07 13:30)
DX: S42.291A Other displaced fracture of upper end of right humerus, initial encounter for closed fracture (principal); E87.6 Hypokalemia; F10.10 Alcohol abuse, uncomplicated; Z96.611 Presence of right artificial shoulder joint; K21.9 Gastro-esophageal reflux disease without esophagitis; F17.210 Nicotine dependence, cigarettes, uncomplicated; I10 Essential (primary) hypertension; I44.7 Left bundle-branch block, unspecified; W18.39XA Other fall on same level, initial encounter; Y93.89 Activity, other specified; Y92.098 Other place in other non-institutional residence as the place of occurrence of the external cause; Y99.8 Other external cause status; Z79.899 Other long term (current) drug therapy; Z82.0 Family history of epilepsy and other diseases of the nervous system; Z86.73 Personal history of transient ischemic attack (TIA), and cerebral infarction without residual deficits; Z91.81 History of falling
CPT/HCPCS: 36415; 71250; 80048; 80053; 83735; 85025; 85610; 85730; 93005; 96374; 96375; 96376; 99285; C1713; C1776; G0378; J0690; J1100; J1650; J2250; J2405; J2704; J2710; J3010; J3360; J3480; J0330; J2270; J3475; J7030; J7040

== ENCOUNTER 2020-04-16 14:06 | Emergency (ER) | payer MEDICARE, MEDICAID ==
[~2020-04-16] VITALS: Ht 185.4 cm; Wt 73.0 kg
[~2020-04-16 14:06] MED LIST changes: +ENOX30DI3 SQ; +GABA-827 PO; +MAGN70TA2 PO; +POLY17PO5 PO; +SENN-193 PO
--- NOTE | 2020-04-16 14:50 | NUR ---
REPORT TO RAJENDRA ISAAC WHO ASSUMED CARE OF PT.
--- NOTE | 2020-04-16 14:52 | NUR ---
REPORT RECEIVED FROM RAJENDRA CONWAY. PLAN OF CARE DISCUSSED
--- NOTE | 2020-04-16 15:33 | NUR ---
Patient given discharge instructions and they have confirmed that they understand the instructions. Patient wheeled to discharge
[2020-04-16 15:34] VITALS: BP 124/70
== END 2020-04-16 15:52 | disposition home or self-care (01) ==
LOC: ED 14:58
DX: S43.004A Unspecified dislocation of right shoulder joint, initial encounter (principal); X58.XXXA Exposure to other specified factors, initial encounter; Y93.89 Activity, other specified; Y92.410 Unspecified street and highway as the place of occurrence of the external cause; Y99.8 Other external cause status
CPT/HCPCS: 99283

== ENCOUNTER → 2020-09-09 | Outpatient (CLI) | payer MEDICARE, MEDICAID | END | disposition home or self-care (01) | LOC: RAD 13:11 | PROVIDERS: ATTEND Physician Assistant | DX: K21.9 Gastro-esophageal reflux disease without esophagitis (principal); R94.5 Abnormal results of liver function studies; R06.6 Hiccough; K31.89 Other diseases of stomach and duodenum; Z65.8 Other specified problems related to psychosocial circumstances | CPT/HCPCS: 76705 ==

== ENCOUNTER → 2020-10-04 | Outpatient (CLI) | payer MEDICARE, MEDICAID | END | disposition home or self-care (01) | LOC: STAR 13:51 | PROVIDERS: ATTEND Anesthesiology | DX: Z20.828 Contact with and (suspected) exposure to other viral communicable diseases (principal) | CPT/HCPCS: 87635 ==

== ENCOUNTER 2020-10-08 12:57 | Day surgery (SDC) | payer MEDICARE, MEDICAID ==
[~2020-10-08] VITALS: Ht 185.4 cm; Wt 81.9 kg
[2020-10-08 13:49] VITALS: BP 152/60
[2020-10-08] MEDS ORDERED: HYDR25TA6 PO (13:53)
[2020-10-08] MEDS ORDERED: BUPR150T73 PO (13:53)
[2020-10-08] MEDS ORDERED: LACTATED RINGERS 1,000 ML IV SCH (14:00)
[2020-10-08] MEDS ORDERED: CHLORHEXIDINE 15 ML UDC MM ONE (14:00)
[2020-10-08] MEDS ORDERED: CHLORHEXIDINE 15 ML UDC ONE (14:11)
[2020-10-08 14:37] LABS: ALANINE AMINOTRANSFERASE 36 U/L (12-78); ALBUMIN 3.4 g/dL (3.4-5.0); ANION GAP 6 mmol/L (5-15); CALCIUM 8.6 mg/dL (8.5-10.1); CHLORIDE 111 mmol/L (98-107); CREATININE 0.66 mg/dL (0.7-1.3)
[2020-10-08 14:39] LABS: ALKALINE PHOSPHATASE 61 U/L (45-117); BILIRUBIN,TOTAL 0.6 mg/dL (0.2-1.0); TOTAL PROTEIN 8.7 g/dL (6.4-8.2)
[2020-10-08] MEDS ORDERED: PROPOFOL 10 MG/ML, 20ML ONE (14:57)
[2020-10-08] MEDS ORDERED: ONDANSETRON 2MG/ML, 2ML ONE (14:57)
[2020-10-08] MEDS ORDERED: LIDOCAINE-MPF 1%, 2ML ONE (14:57)
[2020-10-08] MEDS ORDERED: DEXAMETHASONE 4 MG/ML, 1ML ONE (14:57)
[2020-10-08] MEDS ORDERED: EPHEDRINE 50 MG/ML, 1ML IVPush PRN (15:00)
[2020-10-08] MEDS ORDERED: ONDANSETRON 2MG/ML, 2ML IVPush PRN (15:00)
[2020-10-08] MEDS ORDERED: ACETAMINOPHEN 325 MG TABLET PO PRN (15:00)
[2020-10-08] MEDS ORDERED: PROMETHAZINE 25 MG/ML, 1ML IVPush PRN (15:00)
[2020-10-08] MEDS ORDERED: OXYcodone 5 MG/5 ML ORAL.SOL UDC PO PRN (15:00)
[2020-10-08] MEDS ORDERED: LABETALOL 5MG/ML, 20ML IV PRN (15:00)
[2020-10-08] MEDS ORDERED: FENTANYL PF 100 MCG/2ML IV PRN (15:00)
[2020-10-08] MEDS ORDERED: hydrALAzine 20 MG/ML, 1ML IV PRN (15:00)
== END 2020-10-08 16:30 | disposition home or self-care (01) ==
LOC: SDC 12:57 → RAD 12:57 → EDSTATUS 14:45 → SDC 16:30
PROVIDERS: ATTEND Physician Assistant Surgical
DX: M51.16 Intervertebral disc disorders with radiculopathy, lumbar region (principal); M48.061 Spinal stenosis, lumbar region without neurogenic claudication; F41.9 Anxiety disorder, unspecified; I10 Essential (primary) hypertension; E78.5 Hyperlipidemia, unspecified; K21.9 Gastro-esophageal reflux disease without esophagitis; F17.210 Nicotine dependence, cigarettes, uncomplicated; F12.90 Cannabis use, unspecified, uncomplicated; Z72.89 Other problems related to lifestyle; Z79.899 Other long term (current) drug therapy; Z98.890 Other specified postprocedural states
CPT/HCPCS: 36415; 72148; 80053; 93005; J1100; J2405; J2704; J7120

== ENCOUNTER → 2020-11-18 | Outpatient (CLI) | payer MEDICARE, MEDICAID ==
[~2020-11-18] MED LIST changes: +BUPR150T73 PO; +HYDR-1067 PO; -HYDR-3240 PO; +HYDR25TA6 PO
== END | disposition home or self-care (01) ==
LOC: CFH 10:48
PROVIDERS: ATTEND Physician Assistant Surgical
DX: S32.010S Wedge compression fracture of first lumbar vertebra, sequela (principal); S22.080S Wedge compression fracture of T11-T12 vertebra, sequela; X58.XXXS Exposure to other specified factors, sequela; M81.0 Age-related osteoporosis without current pathological fracture
CPT/HCPCS: 72120; 77080

== ENCOUNTER → 2020-12-14 | Outpatient (CLI) | payer MEDICARE, MEDICAID ==
[2020-12-14 16:16] LABS: BASOPHILS % (AUTO) 1 % (0-1); EOSINOPHILS % (AUTO) 2 % (1-7); LYMPHOCYTES % (AUTO) 28 % (22-44); MEAN CORPUSCULAR HEMOGLOBIN 26.5 pg (27.5-34.5); MEAN CORPUSCULAR HGB CONC 32.6 g/dL (33.2-36.2); MEAN PLATELET VOLUME 8.4 fL (7.4-10.4); MICROSCOPIC NOT IND; MONOCYTES % (AUTO) 13 % (2-9); NEUTROPHILS % (AUTO) 56 % (42-75); PLATELET COUNT 154 x10^3/uL (130-400); RED BLOOD COUNT 4.96 x10^6/uL (4.38-5.82); RED CELL DISTRIBUTION WIDTH 18.9 % (9.4-14.8)
[2020-12-14 16:18] LABS: MD NO
[2020-12-14 16:27] LABS: ALBUMIN 3.8 g/dL (3.4-5.0); CALCIUM 8.8 mg/dL (8.5-10.1); CHLORIDE 106 mmol/L (98-107); INTERNATIONAL NORMALIZED RATIO 1.1 (0.93-1.1); PROTHROMBIN TIME 11.7 Seconds (9.6-11.5)
[2020-12-14 16:32] LABS: ALANINE AMINOTRANSFERASE 37 U/L (12-78); ALKALINE PHOSPHATASE 55 U/L (45-117); ANION GAP 12 mmol/L (5-15); BILIRUBIN,TOTAL 1.4 mg/dL (0.2-1.0); CREATININE 0.78 mg/dL (0.7-1.3); TOTAL PROTEIN 8.8 g/dL (6.4-8.2)
== END | disposition home or self-care (01) ==
LOC: STAR 13:45
PROVIDERS: ATTEND Neurological Surgery
DX: Z01.812 Encounter for preprocedural laboratory examination (principal); Z01.811 Encounter for preprocedural respiratory examination; Z20.822 Contact with and (suspected) exposure to COVID-19; Z01.810 Encounter for preprocedural cardiovascular examination; R94.31 Abnormal electrocardiogram [ECG] [EKG]; R82.90 Unspecified abnormal findings in urine; M43.16 Spondylolisthesis, lumbar region; M48.061 Spinal stenosis, lumbar region without neurogenic claudication; M54.16 Radiculopathy, lumbar region; M47.896 Other spondylosis, lumbar region; I44.7 Left bundle-branch block, unspecified
CPT/HCPCS: 71046; 80053; 81003; 85025; 85610; 85730; 87635; 93005

== ENCOUNTER 2021-01-18 12:07 | Emergency (ER) | payer MEDICARE, MEDICAID ==
[~2021-01-18] VITALS: Ht 182.9 cm; Wt 80.0 kg
[~2021-01-18 12:07] MED LIST changes: +MAGN400T50 PO; +ONDA4TAB7 PO; +OXYC-380 PO; +POTA20TA6 PO; +SENN-211 PO
--- NOTE | 2021-01-18 12:19 | NUR ---
BIB BY EMS FROM HOME FOR 05/07 LOWER BACK PAIN THAT RADIATES TO BLE, PATIENT UNABLE TO STAND OR AMBULATE, PT HAD RECENT BACK SURGERY 1 MONTH AGO WITH [facility] WITH .
--- NOTE | 2021-01-18 12:22 | NUR ---
BIB BY EMS FROM HOME FOR 710 LOWER BACK PAIN THAT RADIATES TO BLE, PATIENT UNABLE TO STAND OR AMBULATE, PT HAD RECENT BACK SURGERY [address] [facility] WITH . PT ALSO HAS COMPLAINTS OF NON DESCRIPTIVE LOSS OF BOWEL CONTROL. SENSATION INTACT IN BLE WITH SOME N/T PRESENT. PATIENT ATTACHED TO MONITORS AND POSITIONED TO COMFORT. VSS. AWAITING ORDERS.
--- NOTE | 2021-01-18 12:26 | NUR ---
PT TAKES BACLOFEN, GABAPENTIN, LOSORTAN, OPERAZOLE, POTASSIUM, NORCO, PT SURE OF DOSAGES AT THIS TIME.
--- NOTE | 2021-01-18 12:55 | NUR ---
DR. REIS AT BEDSIDE FOR EVALUATION. VSS. ADLER.
[2021-01-18] MEDS ORDERED: FENTANYL PF 100 MCG/2ML IVPush ONE (13:30)
[2021-01-18] MEDS ORDERED: DIAZEPAM 5 MG/ML, 2ML IV ONE (13:30)
[2021-01-18] MEDS ORDERED: FENTANYL PF 100 MCG/2ML ONE (13:33)
[2021-01-18] MEDS ORDERED: DIAZEPAM 5 MG/ML, 2ML ONE (13:33)
--- NOTE | 2021-01-18 13:42 | NUR ---
PT BEGAN SLURRING WORDS AFTER MEDICATION ADMINISTRATION, PT REMINDED TO RELAX FOR IMAGING AND FOCUS ON HIS BREATHING. PT TO IMAGING, O2 ADMIN IN PLACE, RESPIRATIONS EVEN AND UNLABORED.
[2021-01-18] MEDS ORDERED: GADOTERATE 10 MMOL/20ML SYR ONE (14:02)
--- NOTE | 2021-01-18 14:31 | NUR ---
Break RN: Pt remains in imaging.
--- NOTE | 2021-01-18 14:45 | NUR ---
Pt back from imaging, requesting food. Pt states "oh my god, I hurt everywhere." MD Florez made aware.
--- NOTE | 2021-01-18 15:08 | NUR ---
patient peeing in urinal, resting in bed, vss, nadn.
[2021-01-18 16:42] VITALS: BP 143/79
== END 2021-01-18 16:44 | disposition home or self-care (01) ==
LOC: ED 16:27
DX: M54.16 Radiculopathy, lumbar region (principal); R20.2 Paresthesia of skin; I10 Essential (primary) hypertension
CPT/HCPCS: 72158; 96374; 96375; 99285; A9575; J3010; J3360; J7512